=== PATIENT | female | born 1945 | race Two or more races ===

== ENCOUNTER 2021-01-23 10:45 | Inpatient (IN) | payer OTHER ==
[~2021-01-23] VITALS: Ht 157.5 cm; Wt 55.8 kg
[~2021-01-23 10:45] MED LIST: FLOVENT DI50 MCG/DIS; GLUCOTROL10 MG; JANUMET 50-501 UDTAB; LOTREL 10-20 MG1 CAP; MELOXICAM15 MG; MUCINEX600 MG; NASONEX17 GM; PROVENTIL0.5 ML/2.5; SINGULAIR5 MG
[2021-01-23] MEDS ORDERED: FOSAMAX70 MG PO (13:29)
[2021-01-23] MEDS ORDERED: COZAAR50 MG PO (13:30)
[2021-01-23] MEDS ORDERED: PRILOSEC OTC20 MG PO (13:30)
[2021-01-23] MEDS ORDERED: SINGULAIR10 MG PO (13:31)
[2021-01-23] MEDS ORDERED: ZYRTEC10 M3 PO (13:31)
[2021-01-25] MEDS ORDERED: AMLODIPINE BESYL5 MG (08:21)
[2021-01-25] MEDS ORDERED: SUCRALFATE1 GM (08:22)
[2021-01-25] MEDS ORDERED: OMEPRAZOLE20 MG (08:22)
[2021-01-25] MEDS ORDERED: FAMOTIDINE40 MG (08:22)
[2021-01-25] MEDS ORDERED: DICLOFENAC SOD100 GM (08:23)
[2021-01-25] MEDS ORDERED: ABATINEX680 MG (08:23)
[2021-01-25] MEDS ORDERED: PREDNISOLONE ACE5 ML (08:23)
== END 2021-01-28 18:54 | disposition home or self-care (01) | DRG 331 ==
LOC: O/R 01-25 05:45 → SURH 01-25 05:45
PROVIDERS: ADMIT Colon & Rectal Surgery; ATTEND Colon & Rectal Surgery
PROC: 07BC4ZZ Excision of Pelvis Lymphatic, Percutaneous Endoscopic Approach (ICD-10-PCS; 2021-01-25)
PROC: 4A1635H Monitoring of Lymphatic Flow using Indocyanine Green Dye, Percutaneous Approach (ICD-10-PCS; 2021-01-25)
PROC: 0DTF4ZZ Resection of Right Large Intestine, Percutaneous Endoscopic Approach (ICD-10-PCS; principal; 2021-01-25 10:00)
DX: C18.2 Malignant neoplasm of ascending colon (principal); R59.0 Localized enlarged lymph nodes; J45.909 Unspecified asthma, uncomplicated; I10 Essential (primary) hypertension; E78.5 Hyperlipidemia, unspecified; E11.9 Type 2 diabetes mellitus without complications